=== PATIENT | female | born 1995 | race Caucasian/White ===

== ENCOUNTER 2017-10-04 16:35 | Emergency (ER) | payer MEDICAID, SELFPAY ==
[2017-10-04 18:40] VITALS: BP 135/88; PULSE 115; RESP 20; TEMP 37.7; O2SAT 100; BMI 33.6
[2017-10-04 18:51] LABS: UTC Influenza A Antigen Negative (Negative); UTC Influenza B Antigen Positive (Negative); UTC Strep Screen (Rapid) Negative (Negative)
--- NOTE | 2017-10-04 19:11 | HMH.EDUTC ---
[facility] – [place] Disposition Clinical Impression: Influenza B Disposition: Home, Self-Care Condition on Discharge: Good Instructions: DI for Influenza -- Adult, DI for Fever (Symptom) -- Adult Additional Instructions: * Lots of rest * Increase fluids, water, gatorade, powerade, pedialyte if infant/toddler/child * Monitor Temp. Tylenol every 4 hours as needed no more then 5 times a day or 4000mg in 24 hours and/or ibuprofen every 6 hours as needed no more then 3200mg in 24 hours (as long as your primary care doctor has told you that it is ok to take both) for fever/aches/pain. ER if fever no less than 101 despite tylenol and Ibuprofen * OTC cold/flu/sinus medication is ok but pick one. Do not take multiple different ones as they have similar ingredients and you can overdose on cold medication. * You (or your child) are contagious until no fever, aches, chills x 24 hours without medication for symptoms. Follow up IMMEDIATELY for new or worsening symptoms, improvement followed by suddenly feeling worse OR no noticeable improvement over the next 48-72 hours. 911 for difficulty breathing Forms: Work/School Release Time of Disposition: 19:20 Medical Decision Making Vital Signs: 10/04/17 18:40 Temperature 100 F H Temperature Source Temporal Artery Scan Pulse Rate [Right Radial] 115 H Respiratory Rate 20 Blood Pressure [Right Arm] 135/88 Blood Pressure Mean [Right Arm] 103 02 Sat by Pulse Oximetry 100 Oxygen Delivery Method Room Air - Lab Data Lab results reviewed: Yes: I reviewed the patient's lab results. Lab Results 10/04/17 18:50: Influenza Type A Ag Negative, Influenza Type B Ag Positive A, Strep Scn Rapid Clinic Negative Orders (Tests/Meds): ORDERS Category Date Time Status Strep Screen Confirmation Stat Micro 10/04/17 18:50 Received - Werner Inquiry Pt receiving controlled substance: No [facility] – [place] HPI - General Stated complaint: fever,throat,congestion Time Seen by Provider: 10/04/17 19:11 Mode of Arrival: Family Vehicle Source of Information: Patient Limitations: No Limitations Description of Symptoms (Recalled from Triage Doc. by RN): PT C/O SORE THROAT, FEVER, CHEST CONGESTION, LEFT EAR PAIN. HEENT Symptoms (Recalled from RN notes): Yes (SORE THROAT, FEVER, LEFT EAR PAIN,) Resp Symptoms (Recalled from RN notes): No Skin Symptoms (Recalled from RN notes): No MS Symptoms (Recalled from RN notes): No Functional Status (Recalled from RN notes): NA - History of Present Illness Provider Complaint: c/o starting to not feel well late Tuesday but really hit hard on Tuesday . Fever, aches, chills, sore throat, nonprod cough, chest congestion, nasal congestion. Tylenol, motrin help. Hasn't taken anything else. No known sick contacts. - Related Data Allergies Allergy/AdvReac Type Severity Reaction Status Date / Time NO KNOWN ALLERGIES - NKA Allergy Unknown Uncoded 08/09/17 15:00 - Worker's Comp Is this a Worker's Comp case?: No [facility] History I have reviewed the patient's past medical history: Yes Medical History: Denies:: Cancer, Diabetes Mellitus Type 1, Diabetes Mellitus Type 2, Hypertension, MRSA Other Surgeries: Yes: No Previous Surgery Amputation: No Fractures: No - *Social History Smoking Status: Never smoker Alcohol Intake: never - Psychiatric History Expresses thoughts of harming self/others: None Suicide Plan Description: No Plan ROS Obtained: Yes Systems reviewed as appropriate & no additional complaints - Constitutional Constitutional: Reports as per HPI, Reports daytime sleepiness, Denies difficulty sleeping, Reports fatigue, Denies poor appetite - Eyes Eyes: Denies eye discharge, Denies eye pain, Denies other (eye redness) - ENT Ears, Nose, Mouth, and Throat: Reports as per HPI, Denies difficulty swallowing, Denies ear discharge, Reports otalgia, Reports nasal discharge, Denies sinus pain, Denies throat swelling - Cardiovascular Cardiovascular: Denies chest pain, Denies ir
--- NOTE | 2017-10-04 19:18 | ED_ITS ---
[facility] – [place] Disposition Clinical Impression: Influenza B Disposition: Home, Self-Care Condition on Discharge: Good Instructions: DI for Influenza -- Adult, DI for Fever (Symptom) -- Adult Additional Instructions: * Lots of rest * Increase fluids, water, gatorade, powerade, pedialyte if infant/toddler/child * Monitor Temp. Tylenol every 4 hours as needed no more then 5 times a day or 4000mg in 24 hours and/or ibuprofen every 6 hours as needed no more then 3200mg in 24 hours (as long as your primary care doctor has told you that it is ok to take both) for fever/aches/pain. ER if fever no less than 101 despite tylenol and Ibuprofen * OTC cold/flu/sinus medication is ok but pick one. Do not take multiple different ones as they have similar ingredients and you can overdose on cold medication. * You (or your child) are contagious until no fever, aches, chills x 24 hours without medication for symptoms. Follow up IMMEDIATELY for new or worsening symptoms, improvement followed by suddenly feeling worse OR no noticeable improvement over the next 48-72 hours. 911 for difficulty breathing Forms: Work/School Release Time of Disposition: 19:20 Medical Decision Making Vital Signs: 10/04/17 18:40 Temperature 100 F H Temperature Source Temporal Artery Scan Pulse Rate [Right Radial] 115 H Respiratory Rate 20 Blood Pressure [Right Arm] 135/88 Blood Pressure Mean [Right Arm] 103 02 Sat by Pulse Oximetry 100 Oxygen Delivery Method Room Air - Lab Data Lab results reviewed: Yes: I reviewed the patient's lab results. Lab Results 10/04/17 18:50: Influenza Type A Ag Negative, Influenza Type B Ag Positive A, Strep Scn Rapid Clinic Negative Orders (Tests/Meds): ORDERS Category Date Time Status Strep Screen Confirmation Stat Micro 10/04/17 18:50 Received - Werner Inquiry Pt receiving controlled substance: No [facility] [place] HPI - General Stated complaint: fever,throat,congestion Time Seen by Provider: 10/04/17 19:11 Mode of Arrival: Family Vehicle Source of Information: Patient Limitations: No Limitations Description of Symptoms (Recalled from Triage Doc. by RN): PT C/O SORE THROAT, FEVER, CHEST CONGESTION, LEFT EAR PAIN. HEENT Symptoms (Recalled from RN notes): Yes (SORE THROAT, FEVER, LEFT EAR PAIN, ) Resp Symptoms (Recalled from RN notes): No Skin Symptoms (Recalled from RN notes): No MS Symptoms (Recalled from RN notes): No Functional Status (Recalled from RN notes): NA - History of Present Illness Provider Complaint: c/o starting to not feel well late Tuesday but really hit hard on Tuesday . Fever, aches, chills, sore throat, nonprod cough, chest congestion, nasal congestion. Tylenol, motrin help. Hasn't taken anything else. No known sick contacts. - Related Data Allergies Allergy/AdvReac Type Severity Reaction Status Date / Time NO KNOWN ALLERGIES - NKA Allergy Unknown Uncoded 08/09/17 15:00 - Worker's Comp Is this a Worker's Comp case?: No [facility] History I have reviewed the patient's past medical history: Yes Medical History: Denies:: Cancer, Diabetes Mellitus Type 1, Diabetes Mellitus Type 2, Hypertension, MRSA Other Surgeries: Yes: No Previous Surgery Amputation: No Fractures: No - *Social History Smoking Status: Never smoker Alcohol Intake: never - Psychiatric History Expresses thoughts of harming self/others: None Suicide Plan Description: No P
[2017-10-04 19:32] VITALS: BP 121/78; PULSE 67; RESP 20; TEMP 36.6; O2SAT 98
== END 2017-10-04 19:33 | disposition home or self-care (01) ==
PROVIDERS: Emergency Provider Nurse Practitioner Family; Family Provider Family Medicine
DX: J11.1 Influenza due to unidentified influenza virus with other respiratory manifestations (principal)
CPT/HCPCS: 87804; 87880; 99202